=== PATIENT | female | born 1980 | race Caucasian/White ===

== ENCOUNTER → 2022-07-05 | Outpatient (REF) | LOC: M SLEEP HO 11:00 | PROVIDERS: ATTEND Physician Assistant | DX: G47.33 Obstructive sleep apnea (adult) (pediatric) (principal) ==

== ENCOUNTER → 2024-10-31 | Outpatient (REF) | payer MEDICAID, OTHER | LOC: M CFLAB 14:48 | DX: Z11.4 Encounter for screening for human immunodeficiency virus [HIV] (principal); L85.9 Epidermal thickening, unspecified; B37.9 Candidiasis, unspecified ==

== ENCOUNTER → 2024-11-19 | Outpatient (REF) | LOC: M LAB REF 10:12 → M LABCFH 10:12 | DX: Z03.89 Encounter for observation for other suspected diseases and conditions ruled out (principal) ==